=== PATIENT | male | born 1995 | race American Indian/Alaskan Native ===

== ENCOUNTER 2020-11-26 22:15 | Emergency (ER) | payer SELFPAY ==
[2020-11-26 22:50] VITALS: BP 116/69
--- NOTE | 2020-11-27 00:27 | Emergency Department Report ---
Chief Complaint: Medical Clearance Stated Complaint: FEELING SICK/LEGS HURT/MIGHT HAVE HIV - HPI History of Present Illness: state he feels sick, concerned for STI, and HIV there is no abd pain, no n/v, no fever or chills, pt is a/o x 3, ambulatory with with steady gait, pt with nad - ROS Review of Systems: a/o x3, no sob, no dizziness, no headache, no abd pain , no cp, no fever or chills - Exam Vital Signs: Vital Signs 11/26/20 22:45 Temperature 98.3 F Pulse Rate 84 Respiratory 18 Rate Blood Pressure 116/69 O2 Sat by Pulse 99 Oximetry Physical Exam: pt appear well , well nourished, well hydrate, a/o 3, lungs clear bilat all lobes, heart S1 ans S2, no rub gallop or murmur, rom inact to all extrems, abd soft nontender pt is tolerating po intake MSE screening note: Focused history and physical exam performed. Due to findings the following was ordered: ED Medical Decision Making - Medical Decision Making Pt concerned for HIV, STI infection denies symptoms , pt does not have an emergency medical condition, pt elects to seek treatment at pcp in 1-2 days, pt will follow up with health department of HIV screening. pt d'c in stable condition at this time ED Disposition for MSE Clinical Impression: Exposure to STD Disposition: MED SCREENING EXAM-LEFT Is pt being admited?: No Does the pt Need Aspirin: No Condition: Stable Referrals: PRIMARY CARE, [Primary Care Provider] - 3-5 Days Time of Disposition: 00:28
== END 2020-11-27 01:30 | disposition left against medical advice (07) ==
LOC: ED 22:15
DX: Z20.2 Contact with and (suspected) exposure to infections with a predominantly sexual mode of transmission (principal); Z53.21 Procedure and treatment not carried out due to patient leaving prior to being seen by health care provider

== ENCOUNTER 2020-11-30 17:12 | Emergency (ER) | payer SELFPAY ==
[2020-11-30 17:57] VITALS: BP 136/64
--- NOTE | 2020-11-30 18:03 | Emergency Department Report ---
Chief Complaint: Urogenital-Male Stated Complaint: KIDNEY PAIN Time Seen by Provider: 11/30/20 17:59 - HPI History of Present Illness: Patient is a 25-year-old male who presents emergency room with complaints of "wanting to be tested for everything." I asked patient what he meant by tested for everything and he reports STDs and HIV. Patient was evaluated emergency department 4 days ago for the same complaint and was referred to his primary care physician, he did not follow-up with a clinic or the health department he presents again today for routine STD panel testing. He is completely asymptomatic. He denies any abdominal pain, pain or swelling in the testicles, fever, nausea, vomiting, diarrhea, urinary symptoms, penile discharge, back pain. He presents for routine STD testing. He denies any SI or HI. No past medical history. No allergies medications. Vitals are stable On exam: Non toxic appearing, no acute distress atraumatic, normocephalic normal appearance of the eyes, EOMI, no periorbital edema or ecchymosis moist mucus membranes No respiratory distress, no accessory muscle use A&O x4, no focal neuro deficit skin is warm, dry, intact Patient is presenting for routine STD testing He denies any symptoms at all currently Patient will be given the appropriate resources advised pt please follow up with the clinic or health department for full std panel. have any partner tested and treated as well. avoid sexual intercourse. return to emergency room for any new or worsening symptoms. - Exam Vital Signs: Vital Signs 11/30/20 17:56 Temperature 98.4 F Pulse Rate 85 Respiratory 16 Rate Blood Pressure 136/64 [Right] O2 Sat by Pulse 100 Oximetry MSE screening note: Focused history and physical exam performed. ED Disposition for MSE Clinical Impression: Concern about STD in male without diagnosis Disposition: Z-07 MED SCREENING EXAM-LEFT Condition: Stable Additional Instructions: please follow up with the clinic or health department for full std panel. have any partner tested and treated as well. avoid sexual intercourse. return to emergency room for any new or worsening symptoms. walk in clinic: [facility] Address: [address] [place] [id number] Referrals: [facility] [Outside] - 2-3 Days Time of Disposition: 18:01 Print Language: SAMI
== END 2020-11-30 18:40 | disposition left against medical advice (07) ==
LOC: ED 17:12
DX: N23 Unspecified renal colic (principal); Z53.01 Procedure and treatment not carried out due to patient smoking